=== PATIENT | male | born 1970 | race Caucasian/White ===

== ENCOUNTER 2021-07-15 10:32 | Emergency (ER) | payer OTHER ==
[~2021-07-15] VITALS: Ht 172.7 cm; Wt 93.0 kg
[2021-07-15] MEDS ORDERED: dexamethasone sod phosphate 10mg/ml inj IV STA (10:44)
[2021-07-15] MEDS ORDERED: diphenhydrAMINE 50 mg/ml inj IV ONE (10:45)
[2021-07-15] MEDS ORDERED: epiNEPHrine 1 mg/ml inj SQ PRN (10:45)
[2021-07-15] MEDS ORDERED: normal saline 1000ML IV soln IVB ONE (10:45)
[2021-07-15] MEDS ORDERED: famotidine/PF 10 mg/ml inj IV ONE (10:45)
[2021-07-15] MEDS: fentaNYL/PF 50MCG/1 ML 2ML syringe IV PRN ×3 (11:12→12:22)
[2021-07-15] MEDS ORDERED: NORMAL SALINE IV ONE (12:05)
[2021-07-15] MEDS ORDERED: KETAMINE IV ONE (12:05)
[2021-07-15] MEDS ORDERED: HYDR-3972 PO (12:24)
[2021-07-15] MEDS ORDERED: ONDA4TAB12 PO (12:24)
[2021-07-15] MEDS ORDERED: diazepam 5mg tablet PO ONE (13:40)
[2021-07-15] MEDS ORDERED: METH-797 PO (13:57)
[2021-07-15] MEDS ORDERED: HYDROmorphone 1 mg/ml syringe IV ONE (14:00)
[2021-07-15 14:30] VITALS: BP 165/92
== END 2021-07-15 14:59 | disposition home or self-care (01) ==
LOC: ER 10:33
DX: T63.311A Toxic effect of venom of black widow spider, accidental (unintentional), initial encounter (principal); T78.2XXA Anaphylactic shock, unspecified, initial encounter; I10 Essential (primary) hypertension; Y92.89 Other specified places as the place of occurrence of the external cause; R61 Generalized hyperhidrosis
CPT/HCPCS: 96361; 96374; 96375; 96376; 99284; J1100; J1170; J1200; J3010; J3490; J7030; 96365; 99285